=== PATIENT | male | born 1980 | race Caucasian/White ===

== ENCOUNTER 2016-12-08 20:24 | Emergency (ER) | payer OTHER ==
[2016-12-08 20:32] VITALS: BP 139/78; BMI 23.6
[2016-12-08] MEDS ORDERED: BACTRIM DS TAB PO ONE ×2 (20:37→20:40)
[2016-12-08] MEDS ORDERED: ROCEPHIN VIAL 1 GM IM ONE (20:38)
[2016-12-08] MEDS ORDERED: ROCEPHIN VIAL 1 GM ONE (20:40)
--- NOTE | 2016-12-08 20:43 | DR.GENAD ---
HPI - PCP Primary Care Physician: ALBERTO - Complaint/Symptoms Chief Complaint Doctors Comments: Patient has a cellulitis of the left posterior auricular area. Denies a history of otitis media. The are gradually increased in size over the past five days. It was drained but is still large Chief Complaint:: PT HAS LARGE ABCESS BEHIND LT EAR FOR 4 DAYS - Source History Provided: Patient - Mode of Arrival Mode of Arrival: Ambulatory - Timing Onset of Chief Complaint: 12/05/16 PMH - PMH Past Medical History: No Past Surgical History: Yes Past Surgical History Comment: LT LOWER LEG SURGERY 07/2016 - Family History History of Family Medical Conditions: No - Social History Type of Tobacco Use: Cigarettes Does any household member use tobacco: No Alcohol Use: Occasionally Do you use any recreational Drugs:: No Lives With: Alone, Family Lives Where: Home - infectious screening In the last 2 months have you had wt loss of >10#?: NO Have you had fever, night sweats or hemotysis?: No Have you traveled outside the country in the last 6 months?: No Isolation: Standard ROS - Review of Systems Constitutional: No Symptoms Reported Eyes: No Symptoms Reported ENTM: No Symptoms Reported Respiratoy: No Symptoms Reported Cardiovascular: No Symptoms Reported Gastrointestinal/Abdominal: No Symptoms Reported Genitourinary: No Symptoms Reported Neurological: No Symptoms Reported Musculoskeletal: See HPI Integumentary: Lesions (ruptured lesion left posterior auricular area-mastoid) Hematologic/Lymphatic: No Symptoms Reported Endocrine: No Symptoms Reported Psychiatric: No Symptoms Reported All Other Systems: Reviewed and Negative PE - Vital Signs Vitals: Temperature 99 F Pulse Rate 109 Respiratory Rate 18 Blood Pressure 139/78 O2 Sat by Pulse Oximetry 99 - General Limitations: No Limitations General Appearance: Alert, In No Apparent Distress - Head Head Exam: Normal Inspection, Atraumatic - Eyes Eye exam: Normal Appearance, PERRL, EOMI - ENT ENT Exam: Normal Exam External Ear Exam: Normal External Inspection TM/Canal Exam: Bilateral Normal Nose Exam: Normal Nose Exam Mouth Exam: Normal Inspection Throat Exam: Normal Inspection - Neck Neck Exam: Normal Inspection - Chest Chest Inspection: Normal Inspection - Respiratory Respiratory Exam: Normal Lung Sounds Bilat Respiratory Exam: Bilateral Clear to Auscultation - Cardiovascular Cardiovascular Exam: Regular Rate, Normal Rhythm - Abdominal Exam Abdominal Exam: Normal Inspection Abdominal Tenderness: negative: RUQ, RLQ, LUQ, LLQ, Epigastrium, Suprapubic, Diffuse, Mild, Moderate, Severe, Other - Extremities Extremities Exam: Normal Inspection - Back Back Exam: Normal Inspection - Neurologic Neurological Exam: Alert, Oriented X3, CN II-XII Intact - Psychiatric Psychiatric Exam: Normal Affect, Normal Mood - Skin Skin Exam: Rash (erythematous firm mass left posterior auricular area) - Diagnosis Discharge Problem: Cellulitis Qualifiers: Site of cellulitis: neck Qualified Code(s): L03.221 - Cellulitis of neck - Discharge Plan Condition: Stable - Follow ups/Referrals Follow ups/Referrals: FELA PRADHAN [Primary Care Provider] - 3 days - Instructions
[2016-12-08 21:09] LABS: BASOPHILS # (AUTO) 0.1 X10^3/uL (0.0-0.1); BASOPHILS % (AUTO) 0.9 % (0.2-1.0); EOSINOPHILS # (AUTO) 0.3 x10^3/uL (0.0-0.2); EOSINOPHILS % (AUTO) 2.4 % (0.9-2.9); HEMATOCRIT 41.8 % (42.0-54.0); HEMOGLOBIN 14.1 g/dL (13.5-18.0); LYMPHOCYTES # (AUTO) 1.9 X10^3/uL (1.3-2.9); LYMPHOCYTES % (AUTO) 13.3 % (21.0-51.0); MEAN CORPUSCULAR HEMOGLOBIN 28.3 pg (27.0-34.0); MEAN CORPUSCULAR HGB CONC 33.7 g/dL (33.0-35.0); MEAN CORPUSCULAR VOLUME 83.9 fL (80.0-100.0); MEAN PLATELET VOLUME 7.9 fL (7.4-11.0); MONOCYTES # (AUTO) 0.9 x10^3/uL (0.3-0.8); MONOCYTES % (AUTO) 6.7 % (0.0-13.0); NEUTROPHILS # (AUTO) 10.8 x10^3/uL (2.2-4.8); NEUTROPHILS % (AUTO) 76.7 % (42.0-75.0); PLATELET COUNT 386 X10^3/uL (150.0-450.0); RED BLOOD COUNT 4.98 X10^6/uL (4.7-6.0); RED CELL DISTRIBUTION WIDTH 13.6 % (11.6-16.5)
== END 2016-12-08 21:20 | disposition home or self-care (01) ==
LOC: ER 20:38
DX: L03.221 Cellulitis of neck (principal)
CPT/HCPCS: 36415; 85025; 87040; 96372; 99282; 99283; J0696